=== PATIENT | male | born 1965 ===

== ENCOUNTER 2016-07-15 13:53 | Emergency (ER) | payer BC ==
[2016-07-15 14:25] VITALS: BP 137/66
--- NOTE | 2016-07-15 14:51 | ED ---
Throat Pain/Nasal Congestion - HPI Summary HPI Summary: 50 yr old male with post nasal drip, sinus congestion, sore throat, bilateral ear pain. HPI: Onset a week ago, has post nasal drip, worse at night with some coughing. He also complains of bilateral ear pain, worse with swallowing. He denies fever. He has pressure in his sinuses as well. NO other complaints. - History of Current Complaint Chief Complaint: UCGeneralIllness Time Seen by Provider: 07/15/16 14:25 - Allergies/Home Medications Allergies/Adverse Reactions: Allergies Allergy/AdvReac Type Severity Reaction Status Date / Time No Known Allergies Allergy Verified 07/15/16 14:25 Home Medications: Home Medications Omeprazole CAP* [Prilosec CAP* 20 MG] 20 mg PO DAILY 07/15/16 [History Confirmed 07/15/16] guaiFENesin ER TAB [Mucinex*] 600 mg PO BID 07/15/16 [History Confirmed 07/15/16 ] PMH/Surg Hx/FS Hx/Imm Hx Previously Healthy: Yes GI History: Reports: Hx Gastroesophageal Reflux Disease Infectious Disease History: No Infectious Disease History: Denies: Traveled Outside the [place] in Last 30 Days - Family History Known Family History: Positive: None - Social History Alcohol Use: Occasionally Substance Use Type: Reports: None Smoking Status (MU): Never Smoked Tobacco Review of Systems Constitutional: Negative Eyes: Negative Positive: Nasal Discharge Cardiovascular: Negative Positive: Cough Gastrointestinal: Negative Genitourinary: Negative Musculoskeletal: Negative Skin: Negative Neurological: Negative All Other Systems Reviewed And Are Negative: Yes Physical Exam Triage Information Reviewed: Yes Vital Signs On Initial Exam: Initial Vitals Temp Pulse Resp BP Pulse Ox 98.3 F 71 18 137/66 98 07/15/16 14:21 07/15/16 14:21 07/15/16 14:21 07/15/16 14:21 07/15/16 14:21 Vital Signs Reviewed: Yes Appearance: Positive: Well-Appearing, No Pain Distress, Well-Nourished Skin: Positive: Warm Head/Face: Positive: Normal Head/Face Inspection Eyes: Positive: Normal, EOMI ENT: Positive: Pharyngeal erythema, Nasal congestion, TM dull - right, TM red - right, Other - bilateral sinus tenderness.. Negative: Muffled/hoarse voice Neck: Positive: Supple Respiratory/Lung Sounds: Positive: Clear to Auscultation, Breath Sounds Present Cardiovascular: Positive: Normal, RRR. Negative: Murmur Abdomen Description: Positive: Nontender Musculoskeletal: Positive: Normal, Strength/ROM Intact Neurological: Positive: Normal, Sensory/Motor Intact, Alert, Oriented to Person Place, Time, CN Intact II-III Psychiatric: Positive: Normal Diagnostics - Vital Signs Vital Signs Temp Pulse Resp BP Pulse Ox 07/15/16 14:21 98.3 F 71 18 137/66 98 - Laboratory Lab Statement: Any lab studies that have been ordered have been reviewed, and results considered in the medical decision making process. EENT Course/Dx - Course Course Of Treatment: 50 yr old male with right OM and sinus tenderness, DC home on antibiotics. FU PMD - Diagnoses Provider Diagnoses: Sinusitis, Otitis media Discharge - Discharge Plan Condition: Good Disposition: HOME Prescriptions: Amoxicillin/Clavulanate TAB* [Augmentin TAB 875*] 875 mg PO BID #20 tab Patient Education Materials: Sinusitis (ED), Otitis Media (ED) Referrals: Bassem Mcguire DO [Primary Care Provider] -
== END 2016-07-15 14:50 | disposition home or self-care (01) ==
LOC: UCCORT 13:53
DX: J32.9 Chronic sinusitis, unspecified (principal); H66.93 Otitis media, unspecified, bilateral; K21.9 Gastro-esophageal reflux disease without esophagitis
CPT/HCPCS: 99202; G0463